=== PATIENT | male | born 1955 | race African-American/Black ===

== ENCOUNTER 2021-05-01 16:51 | Inpatient (IN) | payer MEDICARE, MEDICAID ==
[~2021-05-01] VITALS: Ht 160 cm; Wt 81.6 kg
[2021-05-01] MEDS ORDERED: LORAZEPAM 2MG/ML CPJ IV NR (18:00)
[2021-05-01] MEDS ORDERED: LEVETIRACETAM 1000MG PREMIX 100 ML IV NR (18:00)
[2021-05-01 20:45] LABS: HEMATOCRIT. 35.9 % (42.0-52.0); HEMOGLOBIN. 12.2 g/dL (14.0-18.0); MEAN CORPUSCULAR HEMOGLOBIN 31.3 pg (28.0-32.0); MEAN CORPUSCULAR VOLUME 92.4 fL (80.0-94.0); MEAN PLATELET VOLUME 7.5 fl (7.4-10.4); PLATELET 353 x1000/uL (130-400); RED BLOOD CELL COUNT 3.89 mill/uL (4.7-6.1)
[2021-05-01 20:48] LABS: CHLORIDE 105 mEq/L (98-107)
[2021-05-01 20:54] LABS: ETHANOL BLOOD < 10 mg/dL
[2021-05-01 20:59] LABS: CREATINE KINASE 79 IU/L (39-308)
[2021-05-01 21:01] LABS: CARBAMAZEPINE < 0.5 ug/mL (4-12)
[2021-05-01 21:03] LABS: PLATELET ESTIMATE NORMAL
[2021-05-01 21:06] LABS: PHENOBARBITAL < 2.1 ug/mL (15.0-40.0)
[2021-05-01 21:32] LABS: VALPROIC ACID < 3.0 ug/mL (50-100)
[2021-05-01 21:47] LABS: CLARITY URINE CLEAR (CLEAR); COLOR URINE YELLOW (YELLOW); KETONES URINE NEGATIVE (NEGATIVE); LEUKOCYTE ESTERASE URINE NEGATIVE (NEGATIVE); NITRITE URINE NEGATIVE (NEGATIVE); OCCULT BLOOD URINE 1+ (NEGATIVE); PROTEIN URINE NEGATIVE (NEGATIVE); SPECIFIC GRAVITY URINE 1.011 (1.005-1.030); UROBILINOGEN URINE 0.2 E.U./dL (0.2-1.0)
[2021-05-01 21:56] LABS: *AMPHETAMINES SCREEN URINE NEGATIVE (NEGATIVE); *BARBITURATES SCREEN URINE NEGATIVE (NEGATIVE); *BENZODIAZEPINES SCREEN URINE NEGATIVE (NEGATIVE); *COCAINE SCREEN URINE NEGATIVE (NEGATIVE)
[2021-05-01 21:58] LABS: CANNABINOID URINE SCREEN NEGATIVE (NEGATIVE); METHADONE URINE SCREEN NEGATIVE (NEGATIVE); OPIATES URINE SCREEN NEGATIVE (NEGATIVE); PHENCYCLIDINE URINE SCREEN NEGATIVE (NEGATIVE)
[2021-05-02] MEDS ORDERED: ACETAMINOPHEN 325MG TABLET PO PRN ×2 (05:30)
[2021-05-02] MEDS ORDERED: ONDANSETRON HCL 4MG/2ML INJ IV PRN (05:30)
[2021-05-02] MEDS ORDERED: LORAZEPAM 2MG/ML CPJ IV PRN (05:30)
[2021-05-02] MEDS ORDERED: HYDROCODONE/ACETAMINOPHEN 5/325MG TABLET PO PRN (05:30)
[2021-05-02 08:00] VITALS: BP 134/74
[2021-05-02 09:30] VITALS: BP 134/74
[2021-05-02 10:07] VITALS: BP 134/74
[2021-05-02] MEDS ORDERED: SUCR1TAB PO (10:54)
[2021-05-02] MEDS ORDERED: IBUP-2029 PO (10:54)
[2021-05-02] MEDS ORDERED: DIAZ10TA4 PO (10:54)
[2021-05-02] MEDS ORDERED: IBUP-2030 PO (10:54)
[2021-05-02] MEDS ORDERED: PANT40TA51 PO (10:54)
[2021-05-02] MEDS ORDERED: PROM5SYR PO (10:54)
[2021-05-02] MEDS ORDERED: CALC-26 PO (10:54)
[2021-05-02] MEDS ORDERED: MULT-1116 PO (10:54)
[2021-05-02] MEDS ORDERED: FLUT15.844 BOTHNSTRLS (10:54)
[2021-05-02] MEDS ORDERED: FAMO20TA8 PO (10:54)
[2021-05-02] MEDS ORDERED: TOPI100T37 PO (10:54)
[2021-05-02] MEDS ORDERED: LEVO112T7 PO (10:54)
[2021-05-02] MEDS ORDERED: LOPE2TAB26 PO (10:54)
[2021-05-02] MEDS ORDERED: OXCA300T51 PO (10:54)
[2021-05-02] MEDS ORDERED: LACT10SO6 PO (10:54)
[2021-05-02] MEDS ORDERED: FERR325T6 PO (10:54)
[2021-05-02 12:00] VITALS: BP 146/71
[2021-05-02] MEDS: TOPIRAMATE 100MG TABLET PO SCH ×2 (13:21→17:04)
[2021-05-02] MEDS: OXCARBAZEPINE 300MG TABLET PO SCH ×2 (13:21→17:04)
[2021-05-02] MEDS: SUCRALFATE 1G TABLET PO SCH ×2 (13:21→17:03)
[2021-05-02] MEDS: PANTOPRAZOLE 40MG DR TABLET PO SCH (13:21)
[2021-05-02 16:00] VITALS: BP 147/77
[2021-05-02] MEDS: FAMOTIDINE 20MG TABLET PO SCH (17:04)
[2021-05-02] MEDS: LACTULOSE 20G/30ML UDC PO SCH (17:04)
[2021-05-02 20:00] VITALS: BP 119/56
[2021-05-02] MEDS ORDERED: POTASSIUM CHLORIDE 20MEQ TABLET SR PO NR (20:00)
[2021-05-03] VITALS: BP 133/66
[2021-05-03 04:00] VITALS: BP 116/58
[2021-05-03 06:31] LABS: BASOPHILS % 0.2 % (0.0-2.0); EOSINOPHILS % 5.1 % (0.0-5.0); HEMATOCRIT. 34.1 % (42.0-52.0); LYMPHOCYTES % 18.8 % (20.0-50.0); MEAN CORPUSCULAR HEMOGLOBIN 32.3 pg (28.0-32.0); MEAN CORPUSCULAR VOLUME 92.1 fL (80.0-94.0); MEAN PLATELET VOLUME 7.5 fl (7.4-10.4); MONOCYTES % 11.1 % (2.0-8.0); NEUTROPHILS % 64.8 % (40.0-76.0); PLATELET 308 x1000/uL (130-400); RED BLOOD CELL COUNT 3.71 mill/uL (4.7-6.1); RED CELL DISTRIBUTION WIDTH 14.4 % (11.6-14.6)
[2021-05-03 06:48] LABS: CHLORIDE 113 mEq/L (98-107)
[2021-05-03 06:58] LABS: PHOSPHORUS 3.3 mg/dL (2.5-4.9)
[2021-05-03] MEDS ORDERED: LEVOTHYROXINE SODIUM 112MCG TABLET PO SCH (07:20)
[2021-05-03 08:00] VITALS: BP 118/76
[2021-05-03] MEDS: ENOXAPARIN 40MG/0.4ML SYR SUBCUT SCH ×2 (09:00→09:16)
[2021-05-03] MEDS ORDERED: CALCIUM 1250MG TABLET (500MG ELEMENTAL CALCIUM) PO SCH (09:00)
[2021-05-03] MEDS: TOPIRAMATE 100MG TABLET PO SCH ×2 (09:16→18:13)
[2021-05-03] MEDS: SUCRALFATE 1G TABLET PO SCH ×3 (09:16→18:13)
[2021-05-03] MEDS: PANTOPRAZOLE 40MG DR TABLET PO SCH (09:16)
[2021-05-03] MEDS: OXCARBAZEPINE 300MG TABLET PO SCH ×2 (09:16→18:13)
[2021-05-03] MEDS: LACTULOSE 20G/30ML UDC PO SCH ×2 (09:17→18:13)
[2021-05-03 12:00] VITALS: BP 124/76
[2021-05-03 16:00] VITALS: BP 139/68
[2021-05-03 17:48] VITALS: BP 139/68
[2021-05-03] MEDS: FAMOTIDINE 20MG TABLET PO SCH (18:13)
== END 2021-05-03 18:42 | DRG 101 ==
LOC: ER 16:51 → EDBEDREQ 22:12 → 6EST 23:44 → EDBEDREQTM 23:45 → EDBEDREQ 23:45 → SUPCPDRO 05-02 05:18 → ENRESERV 05-02 08:43
PROVIDERS: ADMIT Internal Medicine; ATTEND Internal Medicine
DX: G40.409 Other generalized epilepsy and epileptic syndromes, not intractable, without status epilepticus (principal); E87.1 Hypo-osmolality and hyponatremia; E87.2 Acidosis; E87.6 Hypokalemia; D72.829 Elevated white blood cell count, unspecified; D64.9 Anemia, unspecified; E03.9 Hypothyroidism, unspecified; R62.50 Unspecified lack of expected normal physiological development in childhood; R31.9 Hematuria, unspecified; Z79.890 Hormone replacement therapy; Z79.899 Other long term (current) drug therapy
CPT/HCPCS: 36415; 80053; 80156; 80165; 80184; 80185; 80305; 80320; 81003; 82140; 82550; 83605; 83735; 84100; 84484; 85025; 93005; 99285; J1650; J1953; J2060; G0480